=== PATIENT | male | born 1975 | race Caucasian/White ===

== ENCOUNTER → 2017-05-19 | Outpatient (CLI) | payer OTHER ==
--- NOTE | 2017-05-20 12:37 | RAD ---
EXAM DESCRIPTION: Shoulder,Right 2 or More Views CLINICAL HISTORY: 41 years Male, R25.511 COMPARISON: None. FINDINGS: 3 views of the right shoulder show no acute fracture or malalignment. The right AC joint is fairly well-maintained. Is no apparent right-sided rib fracture. No soft tissue abnormality. IMPRESSION: Negative exam. Electronically signed by: Flakito Garvey MD 05/20/2017 12:36 PM CDT Workstation: [id number]
== END ==
LOC: RAD 15:15
PROVIDERS: ATTEND Orthopaedic Surgery
DX: M25.511 Pain in right shoulder (principal)

== ENCOUNTER 2017-06-17 15:26 | Emergency (ER) | payer SELFPAY ==
[2017-06-17 15:52] VITALS: TEMP 98.1
[2017-06-17] MEDS ORDERED: cefTRIAXone SODIUM 1 GM VIAL IM ONE (15:52)
--- NOTE | 2017-06-17 15:55 | ED.PDOC ---
History of Present Illness - General Chief Complaint: Skin/Abrasion/Tear Stated Complaint: Skin irritation to left forearm Time Seen by Provider: 06/17/17 15:37 Source: patient, RN notes reviewed, Vital Signs reviewed Exam Limitations: no limitations - History of Present Illness Initial Comments: Last week patient got fire ant bites on her left are. All resolved except one on his forearm that has become larger, red and tender. Timing/Duration: week Severity: moderate Location: extremities Improving Factors: nothing Worsening Factors: nothing Associated Symptoms: denies symptoms Allergies/Adverse Reactions: Allergies Naproxen Allergy (Verified 06/17/17 15:52) Vomitting Home Medications: Ambulatory Orders Sulfa/Trimeth 800/160 (Ds) Tab [Bactrim DS Tab] 1 ea PO BID #14 tab 06/17/17 Review of Systems - Review of Systems Constitutional: States: no symptoms reported Respiratory: States: no symptoms reported Cardiology: States: no symptoms reported Musculoskeletal: States: no symptoms reported Skin: States: see HPI All other Systems: No Change from Baseline Past Medical History (General) - Patient Medical History Hx Stroke: No Hx Asthma: Yes Hx Cardiac Disorders: Yes - CT x 4, cardiac stents Hx Congestive Heart Failure: No Hx Hypertension: Yes Hx Diabetes: Yes Hx Gastroesophageal Reflux: Yes Hx MRSA: No MRSA Source:: Wound - Vaccination History Hx Influenza Vaccination: No Hx Pneumococcal Vaccination: No - Social History Hx Tobacco Use: Yes Family Medical History - Family History Father Living Status: Still Living Hx Family Hypertension: Yes Physical Exam - Physical Exam General Appearance: Alert, Comfortable, No apparent distress, Well Developed, Well Groomed, Well Hydrated, Well Nourished Cardiovascular/Chest: regular rate, rhythm, no gallop, no JVD, no murmur Respiratory: lungs clear, normal breath sounds, no respiratory distress, no accessory muscle use Extremity: normal range of motion Neurologic: alert, normal mood/affect, oriented x 3 Skin Exam: warm/dry, normal color Skin Problem Location: upper extremities - Left dorsal forearm Skin Character: erythema, tenderness, thickening, warm Lymphatic: no adenopathy Comments: Vital Signs 06/17/17 15:30 Temperature 98.1 F Pulse Rate [ 97 H Left Radial] Respiratory 20 Rate Blood Pressure 145/91 [Right Arm] O2 Sat by Pulse 96 Oximetry Progress - Progress Progress: 06/17/17 15:55 Rocephin 1gm IM given Departure - Departure Clinical Impression: Cellulitis of left forearm Time of Disposition: 15:56 Disposition: Discharge to Home or Self Care Condition: Good Departure Forms: ED Discharge - Pt. Copy, Patient Portal Self Enrollment Instructions: DI for Cellulitis -- Adult Diet: resume usual diet Activity: increase activity as tolerated Referrals: Yash Smith MD [Primary Care Provider] - 1-2 Weeks Prescriptions: Sulfa/Trimeth 800/160 (Ds) Tab [Bactrim DS Tab] 1 ea PO BID #14 tab Home Medications: Ambulatory Orders Sulfa/Trimeth 800/160 (Ds) Tab [Bactrim DS Tab] 1 ea PO BID #14 tab 06/17/17 Additional Instructions: Hot, moist compress to arm 3-5X/day
[2017-06-17 16:23] VITALS: BP 138/86; O2SAT 97
== END 2017-06-17 16:22 | disposition home or self-care (01) ==
LOC: ER 15:26
DX: T63.421A Toxic effect of venom of ants, accidental (unintentional), initial encounter (principal); L03.114 Cellulitis of left upper limb; I25.2 Old myocardial infarction; Z98.61 Coronary angioplasty status; I10 Essential (primary) hypertension; E11.9 Type 2 diabetes mellitus without complications; K21.9 Gastro-esophageal reflux disease without esophagitis; Z87.891 Personal history of nicotine dependence; Z88.6 Allergy status to analgesic agent

== ENCOUNTER 2017-08-06 11:42 | Emergency (ER) | payer SELFPAY ==
[2017-08-06 11:59] VITALS: TEMP 98.5
[2017-08-06] MEDS ORDERED: MORPHINE SULFATE INJ 10 MG/ML VIAL IV ONE (12:07)
[2017-08-06] MEDS ORDERED: SODIUM CHLORIDE 0.9% 1000ML 1,000 ML IVS ONE (12:07)
[2017-08-06] MEDS ORDERED: ONDANSETRON INJ 4 MG/2 ML VIAL IV ONE (12:07)
--- NOTE | 2017-08-06 12:14 | ED.PDOC ---
History of Present Illness - General Chief Complaint: Problem Stated Complaint: back pain Time Seen by Provider: 08/06/17 12:06 Source: patient, RN notes reviewed, Vital Signs reviewed Exam Limitations: no limitations - History of Present Illness Initial Comments: Patient presents to ER with c/o R flank pain that has gotten progressively worse over the past 4 days. Pain is worse with movement. He has a history of kidney stones and reports this feels similar but worse. No fever or chills. No N /V/D or urinary symptoms. Timing/Duration: getting worse - over past 4 days Quality: moderate, dull Onset Location: right flank Radiation: none Activites at Onset: none Prior abdominal problems: similar symptoms Sexual intercourse history: single partner Improving Factors: rest Worsening Factors: movement Associated Symptoms: denies symptoms Allergies/Adverse Reactions: Allergies Naproxen Allergy (Verified 08/06/17 11:58) Vomitting Home Medications: Ambulatory Orders Cyclobenzaprine HCl [Flexeril] 10 mg PO Q8HR PRN #15 tab 08/06/17 Review of Systems - Review of Systems Constitutional: States: no symptoms reported. Denies: chills, fever, malaise Respiratory: States: no symptoms reported. Denies: cough, short of breath Cardiology: States: no symptoms reported. Denies: chest pain Gastrointestinal/Abdominal: States: no symptoms reported. Denies: abdominal pain, diarrhea, nausea, vomiting Genitourinary: States: no symptoms reported. Denies: dysuria, frequency, pain Musculoskeletal: States: back pain - R flank Skin: States: no symptoms reported Neurological: States: no symptoms reported All other Systems: No Change from Baseline Past Medical History (General) - Patient Medical History Hx Stroke: No Hx Asthma: Yes Hx Cardiac Disorders: Yes - [place] x 4, cardiac stents Hx Congestive Heart Failure: No Hx Hypertension: Yes Hx Diabetes: Yes Hx Gastroesophageal Reflux: Yes Hx MRSA: No MRSA Source:: Wound Surgical History: other - Vaccination History Hx Influenza Vaccination: No Hx Pneumococcal Vaccination: No - Social History Hx Tobacco Use: Yes Hx Alcohol Use: No Hx Substance Use: No Hx Substance Use Treatment: No Hx Depression: No Family Medical History - Family History Father Living Status: Still Living Hx Family Hypertension: Yes Physical Exam - Physical Exam General Appearance: Alert, No apparent distress, Obese, Well Developed, Well Groomed, Well Hydrated, Well Nourished, Other - Appears uncomfortable Neck: non-tender, full range of motion, supple, normal inspection Cardiovascular/Respiratory: regular rate, rhythm, no M/R/G, normal breath sounds , no respiratory distress Gastrointestinal/Abdominal: normal bowel sounds, non tender, soft, no organomegaly, no pulsatile mass Back Exam: no vertebral tenderness, CVA tenderness (R) - mild, muscle spasm - R flank - tender to palpation Extremity: normal range of motion, normal inspection Neurologic: alert, normal mood/affect, oriented x 3 Skin Exam: normal color, warm/dry Comments: Vital Signs 08/06/17 11:42 Temperature 98.5 F Pulse Rate [ 85 pulse ox] Respiratory 18 Rate Blood Pressure 159/100 [Right Arm] O2 Sat by Pulse 95 Oximetry Progress - Results/Orders Results/Orders: Laboratory Tests 08/06/17 08/06/17 08/06/17 12:07 12:07 12:15 WBC 8.7 RBC 5.42 Hgb 16.9 Hct 49.5 MCV 91.4 MCH 31.1 H MCHC 34.1 RDW 13.9 Plt Count 220 MPV 7.8 Absolute Neuts (auto) 5.10 Absolute Lymphs (auto) 2.60 Absolute Monos (auto) 0.70 Absolute Eos (auto) 0.20 Absolute Basos (auto) 0.10 Neutrophils % 58.5 Lymphocytes % 29.7 Monocytes % 8.4 Eosinophils % 2.7 Basophils % 0.7 Sodium 138 Potassium 4.0 Chloride 106 Carbon Dioxide 25 Anion Gap 11.0 L BUN 11 Creatinine 0.74 BUN/Creatinine Ratio 14.9 Random Glucose 148 H Serum Osmolality 277.8 Calcium 8.9 Total Bilirubin 0.7 AST 26 ALT 26 Alkaline Phosphatase 52 Serum Total Protein 7.4 Albumin 3.8 Globulin 3.6 H Albumin/Globulin Ratio 1.1 Urine Color Yellow Urine Appearance Clear Urine pH 7.0 Ur Specific [place] 1.025 Urine Protein Negative Urine Glucose (UA) Negative Urine Ketones Negative Urine Blood Negative Urine Nitrite Negative Urine Bilirubin Negative Urine Urobilinogen 0.2 Ur Leukocyte Esterase Negative Urine RBC 0 Urine WBC 0 Ur Epithelial Cells 0 Urine Bacteria 0 - EKG/XRAY/CT CT Ordered: Yes - bilateral non-obstructing kidney stones, no hydronephrosis or hydroureter Departure - Departure Clinical Impression: Muscle spasm of back Time of Disposition: 13:44 Disposition: Discharge to Home or Self Care Condition: Good Departure Forms: ED Discharge - Pt. Copy, Patient Portal Self Enrollment Instructions: DI for Back Strain or Sprain Diet: resume usual diet Activity: increase activity as tolerated Referrals: Yash Smith MD [Primary Care Provider] - 1-2 Weeks Prescriptions: Cyclobenzaprine HCl [Flexeril] 10 mg PO Q8HR PRN #15 tab PRN Reason: Muscle Spasms Home Medications: Ambulatory Orders Cyclobenzaprine HCl [Flexeril] 10 mg PO Q8HR PRN #15 tab 08/06/17 Additional Instructions: Alternate heat and ice to back 20 minutes of each 3-5X/day
--- NOTE | 2017-08-06 13:35 | CT ---
EXAM DESCRIPTION: Abdoment/Pelvis w/o Contrast CLINICAL HISTORY: 42 years Male R flank pain, Hx of kidney stones COMPARISON: None. TECHNIQUE: Contiguous axial images obtained through the abdomen and pelvis without IV contrast. Reformatted images obtained. This exam was performed according to our department optimization program which includes automated exposure control, adjustment of the mA and/or kv according to patient size and/or use of iterative reconstruction technique. FINDINGS: The lung bases are clear. The liver is enlarged measuring 21.6 cm. Brain is at the upper limits of size at 12.6 cm. Pancreas is unremarkable. No adrenal masses. There are bilateral nonobstructing renal calculi. No evidence of hydronephrosis and no evidence of obstructive uropathy. Urinary bladder is incompletely distended. Phleboliths in the pelvis. The gallbladder is visualized. No aneurysmal dilatation of the aorta. No bowel obstruction. No evidence of appendicitis. No free pelvic fluid. IMPRESSION: Bilateral nonobstructing renal calculi without evidence of hydronephrosis or obstructive uropathy Enlarged liver Electronically signed by: Radha Nicholson 08/06/2017 1:34 PM CDT
[2017-08-06 13:57] VITALS: BP 123/85; O2SAT 97
== END 2017-08-06 13:57 | disposition home or self-care (01) ==
LOC: ER 11:42
DX: M62.830 Muscle spasm of back (principal); I25.2 Old myocardial infarction; I10 Essential (primary) hypertension; K21.9 Gastro-esophageal reflux disease without esophagitis; Z87.891 Personal history of nicotine dependence; Z88.6 Allergy status to analgesic agent
CPT/HCPCS: 74176; 80053; 81001; 85025; J2270; J2405; J7030

== ENCOUNTER 2017-09-07 17:43 | Emergency (ER) | payer SELFPAY ==
[2017-09-07 18:12] VITALS: BP 138/92; TEMP 98.5; O2SAT 99
[2017-09-07] MEDS ORDERED: CYCLOBENZAPRINE HCL 5 MG TAB PO ONE (18:17)
[2017-09-07] MEDS ORDERED: HYDROcodone 7.5MG/APAP 325MG 1 EA TAB PO ONE (18:17)
--- NOTE | 2017-09-07 18:41 | ED.PDOC ---
History of Present Illness - General Chief Complaint: Problem Time Seen by Provider: 09/07/17 17:59 Source: patient Exam Limitations: no limitations - History of Present Illness Initial Comments: The patient is a 42-year-old male presenting to the emergency room secondary to pain in his left flank present for approximately 5 days. Pain started after he jumped off of a truck. He has pain with lifting his leg. He has some pain with externally rotating his left leg. He is neurovascularly preserved. There is no pain to external palpation of the back. There is no bruising. There is no spinous process tenderness to palpation and there is no step-off. He is concerned about a kidney stone as he has had one in the past however he has no urinary symptoms. He just had a CT scan a few weeks ago showing nokidney stones in the ureters at that time. Timing/Duration: 1 week Severity: moderate Improving Factors: immobilization Worsening Factors: movement Associated Symptoms: denies symptoms Allergies/Adverse Reactions: Allergies Naproxen Allergy (Verified 08/06/17 11:58) Vomitting Home Medications: Ambulatory Orders Cyclobenzaprine HCl [Flexeril] 10 mg PO Q8HR PRN #15 tab 08/06/17 Anozxutznrmzx-Lnnm-Stnissrvqu [Fioricet] 1 ea PO Q8H PRN #21 tab 09/07/17 Cyclobenzaprine HCl [Flexeril] 5 mg PO TID PRN #30 tab 09/07/17 predniSONE [Prednisone] 20 mg PO DAILY #5 tab 09/07/17 Review of Systems - Review of Systems Constitutional: States: no symptoms reported EENTM: States: no symptoms reported Respiratory: States: no symptoms reported Cardiology: States: no symptoms reported Gastrointestinal/Abdominal: States: no symptoms reported Genitourinary: States: no symptoms reported Musculoskeletal: States: see HPI Skin: States: no symptoms reported Neurological: States: no symptoms reported Endocrine: States: no symptoms reported All other Systems: No Change from Baseline Past Medical History (General) - Patient Medical History Hx Stroke: No Hx Asthma: Yes Hx Cardiac Disorders: Yes - [place] x 4, cardiac stents Hx Congestive Heart Failure: No Hx Hypertension: Yes Hx Diabetes: Yes Hx Gastroesophageal Reflux: Yes Hx MRSA: No MRSA Source:: Wound - Vaccination History Hx Influenza Vaccination: No Hx Pneumococcal Vaccination: No - Social History Hx Tobacco Use: Yes Hx Alcohol Use: No Hx Substance Use: No Hx Substance Use Treatment: No Hx Depression: No Family Medical History - Family History Father Living Status: Still Living Hx Family Hypertension: Yes Physical Exam - Physical Exam General Appearance: Alert, No apparent distress Eye Exam: bilateral normal Ears, Nose, Throat: hearing grossly normal, normal ENT inspection, normal pharynx Neck: full range of motion, supple Respiratory: chest non-tender, lungs clear, normal breath sounds, no respiratory distress, no accessory muscle use Cardiovascular/Chest: normal peripheral pulses, regular rate, rhythm, no edema Peripheral Pulses: radial,right: 2+, radial,left: 2+, dorsalis pedis,right: 2+, dorsalis pedis,left: 2+ Gastrointestinal/Abdominal: non tender, soft Rectal Exam: deferred Back Exam: normal inspection, no vertebral tenderness, CVA tenderness (L) Extremity: non-tender, no pedal edema, no calf tenderness, normal capillary refill Neurologic: hand paster II-XII nml as tested, alert, normal mood/affect, oriented x 3 Skin Exam: normal color Comments: Vital Signs - 8 hr 09/07/17 17:50 Temperature 98.5 F Pulse Rate [ 96 H left brachial] Respiratory 20 Rate Blood Pressure 138/92 [left brachial] O2 Sat by Pulse 99 Oximetry Progress - Progress Progress: 09/07/17 18:41 the patient is a 42-year-old male presenting to the emergency room secondary to left flank pain. The patient most likely has a left iliopsoas muscle strain. He does need to stretch and move around. He'll be written for Fioricet and Flexeril for as needed use. He will also be written for 5 days of oral prednisone. ER warnings were given. Urinalysis was clear. He should follow-up with his primary care doctor next week. He should not take any additional Tylenol while taking the Fioricet. 09/07/17 18:44 - Results/Orders Results/Orders: Laboratory Tests 09/07/17 18:13 Urine Color Yellow Urine Appearance Clear Urine pH 5.5 Ur Specific [place] >= 1.030 Urine Protein Negative Urine Glucose (UA) Negative Urine Ketones Negative Urine Blood Negative Urine Nitrite Negative Urine Bilirubin Negative Urine Urobilinogen 0.2 Ur Leukocyte Esterase Negative Urine RBC 0-1 Urine WBC 1-3 Ur Epithelial Cells 0 Urine Bacteria 0 Departure - Departure Clinical Impression: Strain of iliopsoas muscle Qualifiers: Encounter type: initial encounter Laterality: left Qualified Code(s): S76.912A - Strain of unspecified muscles, fascia and tendons at thigh level, left thigh, initial encounter Disposition: Discharge to Home or Self Care Condition: Fair Departure Forms: ED Discharge - Pt. Copy, Patient Portal Self Enrollment Instructions: Muscle Strain Diet: regular diet Activity: increase activity as tolerated Referrals: Yash Smith MD [Primary Care Provider] - 1-2 Weeks Prescriptions: Bsphlayvbmflg-Qcmt-Hgzlpozfup [Fioricet] 1 ea PO Q8H PRN #21 tab PRN Reason: Pain Cyclobenzaprine HCl [Flexeril] 5 mg PO TID PRN #30 tab PRN Reason: Muscle Spasms predniSONE [Prednisone] 20 mg PO DAILY #5 tab Home Medications: Ambulatory Orders Cyclobenzaprine HCl [Flexeril] 10 mg PO Q8HR PRN #15 tab 08/06/17 Tbatokrdflxuj-Uioj-Evhfxwumdz [Fioricet] 1 ea PO Q8H PRN #21 tab 09/07/17 Cyclobenzaprine HCl [Flexeril] 5 mg PO TID PRN #30 tab 09/07/17 predniSONE [Prednisone] 20 mg PO DAILY #5 tab 09/07/17 Additional Instructions: the patient is a 42-year-old male presenting to the emergency room secondary to left flank pain. The patient most likely has a left iliopsoas muscle strain. He does need to stretch and move around. He'll be written for Fioricet and Flexeril for as needed use. He will also be written for 5 days of oral prednisone. ER warnings were given. Urinalysis was clear. He should follow-up with his primary care doctor next week. He should not take any additional Tylenol while taking the Fioricet.
== END 2017-09-07 18:48 | disposition home or self-care (01) ==
LOC: ER 17:43
DX: S76.812A Strain of other specified muscles, fascia and tendons at thigh level, left thigh, initial encounter (principal); I25.2 Old myocardial infarction; I10 Essential (primary) hypertension; E11.9 Type 2 diabetes mellitus without complications; K21.9 Gastro-esophageal reflux disease without esophagitis; Z88.6 Allergy status to analgesic agent; Z79.899 Other long term (current) drug therapy; Z98.61 Coronary angioplasty status; X58.XXXA Exposure to other specified factors, initial encounter; Y92.9 Unspecified place or not applicable

== ENCOUNTER → 2018-04-02 | Outpatient (CLI) | payer OTHER | LOC: YCFC.O 11:55 | DX: I10 Essential (primary) hypertension (principal); Z86.39 Personal history of other endocrine, nutritional and metabolic disease ==

== ENCOUNTER 2018-05-15 13:57 | Emergency (ER) | payer SELFPAY ==
[2018-05-15 14:27] VITALS: TEMP 97.9; O2SAT 98
--- NOTE | 2018-05-15 14:41 | ED.PDOC ---
History of Present Illness - General Chief Complaint: Trauma Stated Complaint: trauma Time Seen by Provider: 05/15/18 14:35 Source: patient, RN notes reviewed Exam Limitations: no limitations - History of Present Illness Initial Comments: A METAL GATE WEIGHING 2600 LBS FELL ON HIS LEFT SHOULDER, BACK AND INJURED THE HEEL OF THE LEFT FOOT. Occurred: just prior to arrival Severity: moderate Pain Location: back Method of Injury: direct blow, fall Improving Factors: nothing Worsening Factors: movement Loss of Consciousness: no loss of consciousness Associated Symptoms (Fall): denies symptoms Allergies/Adverse Reactions: Allergies Naproxen Allergy (Verified 05/15/18 14:29) Vomitting Home Medications: Ambulatory Orders Cyclobenzaprine HCl [Flexeril] 10 mg PO Q8HR PRN #15 tab 08/06/17 Vphcojxwttwjb-Txvt-Rvfetaorjz [Fioricet] 1 ea PO Q8H PRN #21 tab 09/07/17 Cyclobenzaprine HCl [Flexeril] 5 mg PO TID PRN #30 tab 09/07/17 predniSONE [Prednisone] 20 mg PO DAILY #5 tab 09/07/17 Tramadol HCl 50 mg PO Q6HR #20 tab 05/15/18 Review of Systems - Review of Systems Constitutional: States: no symptoms reported EENTM: States: no symptoms reported Respiratory: States: no symptoms reported Cardiology: States: no symptoms reported Gastrointestinal/Abdominal: States: no symptoms reported Genitourinary: States: no symptoms reported Musculoskeletal: States: other - BACK PAIN, LEFT FOOT AND SHOULDER PAIN Neurological: States: no symptoms reported Endocrine: States: no symptoms reported Hematologic/Lymphatic: States: no symptoms reported Past Medical History (General) - Patient Medical History Hx Stroke: No Hx Asthma: Yes Hx Cardiac Disorders: Yes - [place] x 4, cardiac stents Hx Congestive Heart Failure: No Hx Hypertension: Yes Hx Diabetes: Yes Hx Gastroesophageal Reflux: Yes Hx MRSA: No MRSA Source:: Wound Surgical History: other - Vaccination History Hx Influenza Vaccination: No Hx Pneumococcal Vaccination: No - Social History Hx Tobacco Use: Yes Hx Alcohol Use: No Hx Substance Use: No Hx Substance Use Treatment: No Hx Depression: No Family Medical History - Family History Father Living Status: Still Living Hx Family Hypertension: Yes Physical Exam - Physical Exam General Appearance: Alert, Other - MODERATE DISTRESS Head Injury: no evidence of injury Eye Exam: bilateral normal ENT Exam: hearing grossly normal, no evidence of ENT injury Neck Exam: non-tender, full range of motion, normal alignment Cardiovascular/Respiratory: regular rate, rhythm, normal peripheral pulses, no JVD Gastrointestinal/Abdominal: normal bowel sounds, non tender, soft, no organomegaly, no pulsatile mass Back Exam: normal inspection, other - ABRASION TO THE THORACIC AND LUMBAR AREA, Extremity Exam: other - PAINFUL LEFT SHOULDER ON MOVEMENT, BUR NO DEFORMITY. THE LEFT FOOT IS TENDER TO PALPATION AT THE LEVEL OF THE HEEL. Progress - Results/Orders Results/Orders: X RAYS OF THE LUMBAR SPINE, LEFT FOOT AND THE LEFT SHOULDER ARE NEGATIVE FOR FRACTURE OR DISLOCATION. Departure - Departure Clinical Impression: Contusion, shoulder or upper arm Strain of ankle and foot Qualifiers: Encounter type: initial encounter Laterality: left Qualified Code(s): S96.912A - Strain of unspecified muscle and tendon at ankle and foot level, left foot, initial encounter Lumbar contusion Qualifiers: Encounter type: initial encounter Qualified Code(s): S30.0XXA - Contusion of lower back and pelvis, initial encounter Time of Disposition: 15:42 Disposition: Discharge to Home or Self Care Condition: Good Departure Forms: ED Discharge - Pt. Copy, Patient Portal Self Enrollment Instructions: DI for Trauma Diet: resume usual diet Referrals: Yash Smith MD [Primary Care Provider] - 1-2 Weeks Prescriptions: Tramadol HCl 50 mg PO Q6HR #20 tab Home Medications: Ambulatory Orders Cyclobenzaprine HCl [Flexeril] 10 mg PO Q8HR PRN #15 tab 08/06/17 Mronceiwpekuo-Mfwi-Lxiwennqir [Fioricet] 1 ea PO Q8H PRN #21 tab 09/07/17 Cyclobenzaprine HCl [Flexeril] 5 mg PO TID PRN #30 tab 09/07/17 predniSONE [Prednisone] 20 mg PO DAILY #5 tab 09/07/17 Tramadol HCl 50 mg PO Q6HR #20 tab 05/15/18
--- NOTE | 2018-05-15 15:25 | RAD ---
EXAM DESCRIPTION: Lumbar Spine 3 Views CLINICAL HISTORY: BACK INJURY COMPARISON: 04 August 2009 TECHNIQUE: 3 views right FINDINGS: The lumbar vertebral bodies are in good AP alignment. Mild degenerative changes are observed in the lower thoracic region. Calcific atherosclerotic changes observed in the abdominal aorta without evidence of aneurysmal dilatation. No evidence of spondylolysis or spondylolisthesis is seen. IMPRESSION: Mild degenerative changes are observed in the upper thoracic region. No evidence of fracturing is seen. Electronically signed by: Francois Donaldson MD 05/15/2018 3:24 PM CDT
--- NOTE | 2018-05-15 15:29 | RAD ---
EXAM DESCRIPTION: Foot,Left 3 Views CLINICAL HISTORY: BACK INJURY heel pain COMPARISON: None. TECHNIQUE: 3 views left FINDINGS: A plantar calcaneal spur is observed. Mild intertarsal arthritis is observed. No fracturing is detected. IMPRESSION: Degenerative changes are observed. No fracturing is detected. Electronically signed by: Francois Donaldson MD 05/15/2018 3:28 PM CDT
--- NOTE | 2018-05-15 15:38 | RAD ---
EXAM DESCRIPTION: Shoulder,Left 2 or More Views CLINICAL HISTORY: BACK INJURY fall on shoulder, shoulder pain COMPARISON: None. TECHNIQUE: 2 views left FINDINGS: Mild degenerative arthritis is observed in the acromio clavicular joint. The glenohumeral joint is imaged is normal. 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 Exam is otherwise unremarkable. Electronically signed by: Francois Donaldson MD 05/15/2018 3:36 PM CDT
[2018-05-15 15:52] VITALS: BP 100/58
== END 2018-05-15 15:52 | disposition home or self-care (01) ==
LOC: ER 13:57
DX: S30.0XXA Contusion of lower back and pelvis, initial encounter (principal); S96.912A Strain of unspecified muscle and tendon at ankle and foot level, left foot, initial encounter; S40.012A Contusion of left shoulder, initial encounter; S20.412A Abrasion of left back wall of thorax, initial encounter; K21.9 Gastro-esophageal reflux disease without esophagitis; I25.2 Old myocardial infarction; E11.9 Type 2 diabetes mellitus without complications; I10 Essential (primary) hypertension; J45.909 Unspecified asthma, uncomplicated; Z79.899 Other long term (current) drug therapy; Z88.6 Allergy status to analgesic agent; Z87.891 Personal history of nicotine dependence; W20.8XXA Other cause of strike by thrown, projected or falling object, initial encounter; Y92.9 Unspecified place or not applicable